=== PATIENT | male | born 1955 | race American Indian/Alaskan Native ===

== ENCOUNTER 2021-11-26 18:55 | Emergency (ER) | payer SELFPAY ==
[2021-11-26] MEDS ORDERED: SODIUM CHLORIDE 0.9% 1000 ML 1,000 ML IV ONE (22:45)
[2021-11-26 23:07] LABS: Basophils # (Auto) 0.1 K/mm3 (0.0-0.1); Basophils % (Auto) 1.9 % (0.0-1.8); Eosinophils # (Auto) 0.4 K/mm3 (0.0-0.4); Eosinophils % (Auto) 6.1 % (0.0-4.3); Hematocrit 44.4 % (35.5-45.6); Hemoglobin 15.5 gm/dl (11.8-15.2); Lymphocytes # (Auto) 1.1 K/mm3 (1.2-5.4); Mean Corpuscular HGB Conc 35 % (32-34); Mean Corpuscular Volume 95 fl (84-94); Platelet Count 210 K/mm3 (140-440); Red Blood Count 4.68 M/mm3 (3.65-5.03); Red Cell Distribution Width 14.2 % (13.2-15.2)
--- NOTE | 2021-11-26 23:12 | XRay Report ---
CHEST 1 VIEW 11/26/2021 10:49 PM INDICATION / CLINICAL INFORMATION: swelling. COMPARISON: None available. FINDINGS: SUPPORT DEVICES: None. HEART / MEDIASTINUM: Heart size within normal limits. Prominence of the hilum bilaterally is likely v ascular in origin. LUNGS / PLEURA: No significant pulmonary or pleural abnormality. No pneumothorax. ADDITIONAL FINDINGS: No significant additional findings. IMPRESSION: 1. No acute infiltrate. 2. Symmetric hilar prominence is likely vascular in origin. Signer Name: Smooth Lomas MD Signed: 11/26/2021 11:07 PM Workstation Name: [id number]
[2021-11-26 23:17] LABS: INR 1.03 (0.87-1.13)
[2021-11-26 23:25] LABS: BUN/Creatinine Ratio 10; Blood Urea Nitrogen 9 mg/dL (9-20); Hemolysis Index 31
[2021-11-27 00:17] VITALS: BP 203/107
--- NOTE | 2021-11-27 00:37 | Cat Scan Report ---
CT neck w con INDICATION / CLINICAL INFORMATION: 66 years Male; swelling. TECHNIQUE: Contiguous thin cut axial images obtained through the neck following IV contrast. Sagittal and shannon l reconstructions performed by the technologist. All CT scans at this location are performed using CT dose reduction for ALARA by means of automated exposure control. COMPARISON: None available. FINDINGS: MUCOSAL SPACE: The motion degrades the image quality. However, there is notable prominence of the kendrick opharyngeal soft tissues much greater than expected for a patient this age. Additionally, there is pr ominence of the palatine soft tissues with moderate narrowing of the airway. There is also notable pr ominence of the base of tongue soft tissues with effacement of the vallecula. The findings displace t he epiglottis. The laryngeal structures appear fairly symmetric. LYMPH NODES: The findings are compatible with diffuse cervical adenopathy with the most prominent nod e in the right jugulodigastric region measuring 3.0 cm transverse by 3.4 cm AP by 4.0 cm sagittally. This finding results in mass effect and displacement of the submandibular gland anteriorly at. Smalle r nodes are seen extending more inferiorly along the right jugular chain. A node within the left jugu lodigastric region measures approximately 1.6 cm in short axis dimension. The adenopathy, along with the nasopharyngeal and oropharyngeal findings would be most concerning for lymphoma and correlation w ould be needed. A soft tissue lesion is also seen within the midline along the submental region measu ring 1.5 cm in short axis dimension also indicative of a lymph node. SALIVARY GLANDS: There is a small focus of calcification within the right parotid gland measuring 3-4 mm. Otherwise, the parotid glands appear to demonstrate symmetric attenuation. There is again note o f anterior displacement of the right submandibular gland. The left gland appears unremarkable. THYROID GLAND: No definitive focal lesions are seen involving the thyroid gland. PARANASAL SINUSES: Visualized paranasal sinuses and mastoid air cells are essentially clear. SPINE: There are moderate degenerative disc changes at C6-7 and milder at C5-6. VASCULAR STRUCTURES: There is faint contrast opacification of the vascular. There is moderate calcifi cation involving carotid bifurcations. There are emphysematous changes with bulla formation involving visualized lung apices. IMPRESSION: 1. There is cervical adenopathy along with prominence of the nasopharyngeal and oropharyngeal soft ti ssues as detailed above concerning for lymphoma and correlation would be needed. Signer Name: Johnson Otto MD Signed: 11/27/2021 12:33 AM Workstation Name: [id number]
--- NOTE | 2021-11-27 01:10 | Emergency Department Report ---
ED General Adult HPI - General Chief complaint: Dental/Oral Stated complaint: LUMP ON CHIN Time Seen by Provider: 11/26/21 22:39 Source: patient Mode of arrival: Ambulatory Limitations: No Limitations - History of Present Illness Initial comments: Painless Lumps under chin, right neck and right groin X 1 month. Unable to eat solid foods started few weeks ago, not worse than before, no respiratory compromise, notice loss of weight and night sweats -: Gradual, month(s) Location: neck, abdomen Severity scale (0 -10): 0 Associated Symptoms: loss of appetite. denies: nausea/vomiting, rash, seizure, shortness of breath, syncope, weakness, other Treatments Prior to Arrival: none - Related Data Home Medications Medication Instructions Recorded Confirmed Last Taken No Known Home Medications [No 11/26/21 11/26/21 Unknown Reported Home Medications] Allergies Allergy/AdvReac Type Severity Reaction Status Date / Time sulfamethoxazole Allergy Hives Verified 11/26/21 22:12 [From Bactrim] trimethoprim [From Bactrim] Allergy Hives Verified 11/26/21 22:12 ED Review of Systems ROS: Stated complaint: LUMP ON CHIN Other details as noted in HPI Constitutional: denies: chills, fever Eyes: denies: eye pain, eye discharge, vision change ENT: denies: ear pain, throat pain Respiratory: denies: cough, shortness of breath, wheezing Cardiovascular: denies: chest pain, palpitations Endocrine: no symptoms reported Gastrointestinal: denies: abdominal pain, nausea, diarrhea Genitourinary: denies: urgency, dysuria Musculoskeletal: denies: back pain, joint swelling, arthralgia Skin: denies: rash, lesions Neurological: denies: headache, weakness, paresthesias Psychiatric: denies: anxiety, depression Hematological/Lymphatic: denies: easy bleeding, easy bruising ED Past Medical Hx - Past Medical History Previous Medical History?: No Hx Hypertension: Yes Hx CVA: No Hx Heart Attack/AMI: No - Surgical History Past Surgical History?: No - Social History Smoking Status: Current Every Day Smoker Substance Use Type: None - Medications Home Medications: Home Medications Medication Instructions Recorded Confirmed Last Taken Type No Known Home Medications [No 11/26/21 11/26/21 Unknown History Reported Home Medications] ED Physical Exam - General Limitations: No Limitations General appearance: alert, in no apparent distress - Head Head exam: Present: atraumatic, normocephalic - Eye Eye exam: Present: normal appearance - ENT ENT exam: Present: mucous membranes moist - Neck Neck exam: Present: lymphadenopathy - Expanded Neck Exam Expanded Neck exam: Present: anterior neck swelling - Respiratory Respiratory exam: Present: normal lung sounds bilaterally. Absent: respiratory distress - Cardiovascular Cardiovascular Exam: Present: regular rate, normal rhythm. Absent: systolic murmur, diastolic murmur, rubs, gallop - GI/Abdominal GI/Abdominal exam: Present: soft, normal bowel sounds - Rectal Rectal exam: Present: deferred - Extremities Exam Extremities exam: Present: normal inspection - Back Exam Back exam: Present: normal inspection - Neurological Exam Neurological exam: Present: alert, oriented X3 - Psychiatric Psychiatric exam: Present: normal affect, normal mood - Skin Skin exam: Present: warm, dry, intact, normal color. Absent: rash ED Course Vital Signs 11/26/21 11/26/21 11/27/21 22:15 22:19 00:15 Temperature 97.3 F L Pulse Rate 87 85 Respiratory 24 15 Rate Blood Pressure 132/87 203/107 [Left] O2 Sat by Pulse 94 95 95 Oximetry ED Medical Decision Making - Lab Data Result diagrams: 11/26/21 22:51 11/26/21 22:51 - Medical Decision Making vss , no distress no respiratory compromise , CT showed possible lymphoma will need bipsy and referral to oncology Critical care attestation.: If time is entered above; I have spent that time in minutes in the direct care of this critically ill patient, excluding procedure time. ED Disposition Clinical Impression: Lymphadenopathy, Lymphoma Disposition: 01 HOME / SELF CARE / HOMELESS Is pt being admited?: No Does the pt Need Aspirin: No Condition: Stable Instructions: Open Lymph Node Biopsy, Lymphadenopathy Referrals: SALINA AVINA MD [Staff Physician] - 3-5 Days SARAHY ASH NP [Advanced Practice Nurse] - 3-5 Days
== END 2021-11-27 01:51 | disposition home or self-care (01) ==
LOC: ED 18:55
DX: R59.9 Enlarged lymph nodes, unspecified (principal); C85.90 Non-Hodgkin lymphoma, unspecified, unspecified site; F17.200 Nicotine dependence, unspecified, uncomplicated; I10 Essential (primary) hypertension
CPT/HCPCS: 36415; 70491; 71045; 80048; 85025; 85610; 86308; 96360; 99284; J7030; Q9967; Q0162